=== PATIENT | female | born 1960 | race Caucasian/White ===

== ENCOUNTER 2020-03-09 15:57 | Outpatient (CLI) | payer OTHER, SELFPAY ==
--- NOTE | ~2020-03-09 | XR_ITS ---
EXAMINATION: XR knee RT min 4V DATE: 03/09/2020 16:33 INDICATION: Right knee pain. TECHNIQUE: 4 views of right knee were obtained. COMPARISON: None. FINDINGS: Bone alignment is normal. No fracture. There is mild tricompartmental osteoarthritis. There is a moderate-sized knee joint effusion. IMPRESSION: 1. Mild right knee osteoarthritis. 2. Moderate-sized right knee joint effusion. Reviewed, dictated and finalized at location A.
--- NOTE | ~2020-03-09 | XR_ITS ---
EXAMINATION: XR knee LT min 4V DATE: 03/09/2020 16:33 INDICATION: Left knee pain. TECHNIQUE: 4 views of left knee were obtained. COMPARISON: None. FINDINGS: Bone alignment is normal. No fracture. There is mild tricompartmental osteoarthritis. There is a small knee joint effusion. IMPRESSION: 1. Mild left knee osteoarthritis. 2. Small left knee joint effusion. Reviewed, dictated and finalized at location A.
== END 2020-03-09 15:58 | disposition home or self-care (01) ==
PROVIDERS: PCP Family Medicine; Visit Provider Physician Assistant
DX: M17.0 Bilateral primary osteoarthritis of knee (principal); M25.461 Effusion, right knee; M25.462 Effusion, left knee
CPT/HCPCS: 73564

== ENCOUNTER 2020-09-13 07:25 | Outpatient (CLI) | payer OTHER, SELFPAY ==
--- NOTE | ~2020-09-13 | MM_ITS ---
EXAMINATION: MM screening katie BI w alycia HISTORY: Screening mammogram, family history of breast cancer in her mother. TECHNIQUE: Craniocaudal and mediolateral oblique 3-D tomosynthesis images were obtained and synthetic 2-D images were generated. CAD analysis was submitted and interpreted. COMPARISON: 02/18/2019, 02/12/2019, 02/01/2018, 01/15/2017 BREAST PARENCHYMAL COMPOSITION: There are scattered areas of fibroglandular density. FINDINGS: There is no evidence of suspicious mass, calcification, or architectural distortion to sugg est malignancy in either breast. There has been no suspicious interval change. IMPRESSION: 1. No mammographic evidence of malignancy. 2. Recommend routine screening mammography in one year. BI-RADS Category 1: Negative Reviewed, dictated and finalized at location A.
== END 2020-09-13 07:26 | disposition home or self-care (01) ==
LOC: ANHIMG 07:30
PROVIDERS: PCP Family Medicine; Visit Provider Family Medicine
DX: Z12.31 Encounter for screening mammogram for malignant neoplasm of breast (principal)
CPT/HCPCS: 77063; 77067

== ENCOUNTER → 2020-11-09 07:26 | Outpatient (CLI) | payer OTHER, SELFPAY ==
[2020-11-09 19:22] LABS: SARS-CoV-2 RNA PCR Negative
== END ==
PROVIDERS: PCP Family Medicine; Visit Provider Internal Medicine Gastroenterology
DX: Z01.812 Encounter for preprocedural laboratory examination (principal); Z20.822 Contact with and (suspected) exposure to COVID-19
CPT/HCPCS: C9803; U0003; U0005

== ENCOUNTER 2020-11-12 00:08 | Day surgery (SDC) | payer OTHER, SELFPAY ==
[2020-11-01 09:43] VITALS: BMI 29.2
[2020-11-12 06:23] VITALS: BMI 28.3
[2020-11-12 06:26] VITALS: BP 136/86; PULSE 56; RESP 20; TEMP 36.1; O2SAT 100
[2020-11-12] MEDS: LACTATED RINGERS 1,000 ML 150 ML IV CONT (06:48)
--- NOTE | 2020-11-12 06:52 | P.PNAN_ITS ---
Anes - Initial Pre Proc Eval Procedure: Operation Date: 11/12/20 07:30 Proposed Procedures p Esophagogastroduodenoscopy - Andrew Barrett MD Date/Time: 11/12/20 06:52 Surgeon: Andrew Barrett MD Pre Op Diagnosis: GERD Patient Data Age: 60 Gender: F Height: 5 ft 6 in Weight: 79.5 kg Last Vital Signs Temp 36.1 C L 11/12/20 06:26 Pulse 56 L 11/12/20 06:26 Resp 20 11/12/20 06:26 BP 136/86 11/12/20 06:26 Pulse Ox 100 11/12/20 06:26 Allergies Allergy/AdvReac Type Severity Reaction Status Date / Time Penicillins Allergy Unknown allergic Verified 11/12/20 06:22 Sulfa (Sulfonamide Allergy Unknown VAGINAL Verified 11/12/20 06:22 Antibiotics) IRRITATION vilazodone [Viibryd] AdvReac Unknown Nausea Verified 11/12/20 06:22 Home Medications Medication Instructions Recorded Confirmed Type Flonase Allergy Relief 1 spray EACH NARE DAILY 06/11/19 11/01/20 History aspirin 81 mg tablet,delayed 81 mg PO DAILY 03/30/20 11/12/20 History release niacin 500 mg tablet 500 mg PO DAILY 03/30/20 11/12/20 History esomeprazole magnesium 40 mg 40 mg PO DAILY #90 cap 06/07/20 11/12/20 Rx capsule,delayed release magnesium chloride 71.5 mg 71.5 mg PO BID 08/22/20 11/12/20 History (magnesium chloride) tablet,delayed release Patient hx anesthesia problems: none Family hx anesthesia problems: none [facility] Social History Social History Alcohol intake: current Alcohol use details: rare use/ on special occasions only Substance use: never Substance use type: does not use Living arrangements: with family Gender identity (if verbalized by the patient): Female Sexual Orientation (if Verbalized by the Patient): Straight or Heterosexual Spiritual care concerns: No Anes - Eval Final PreProcedure Day of Procedure 11/12/20 06:52 Patient weight: overweight Heart: regular rate and rhythm Lungs: clear to auscultation Airway: Mallampati scale class II Neurological: alert and oriented Last oral intake: >/= 8 hours ASA classification: II Emergent: no Anesthetic plan: proceed Anesthesia type and monitoring: general GIVS and standard monitoring Informed Consent: The patient's anesthetic plan and its attendant risks and benefits were discussed with the patient/family/POA. Questions were solicited and answers provided to the satisfaction of the patient/family/POA.
--- NOTE | 2020-11-12 07:04 | PM.HPGS ---
History of Present Illness History of Present Illness Consent: Risks, benefits, and alternatives have been discussed and questions answered. Patient agrees to proceed with procedure. Chief complaint: GERD Narrative: Tory Holley is a 60 year old female With chronic acid reflux. She is managed at the present time with Nexium. Recently an ENT examined her and saw erythema in the vocal cords and he suggested possibly adding a medication such as cimetidine to her regimen. She denies dysphagia. Her mother had Adan's esophagus Review of Systems Review of Systems: All systems reviewed & are unremarkable except as noted in HPI and below PMFSH Family History Family History (Updated 11/12/20 @ 07:05 by Andrew Barrett MD) Other Adan's esophagus Social History Social History Alcohol intake: current Alcohol use details: rare use/ on special occasions only Substance use: never Substance use type: does not use Living arrangements: with family Gender identity (if verbalized by the patient): Female Sexual Orientation (if Verbalized by the Patient): Straight or Heterosexual Spiritual care concerns: No Meds Home Medications and Allergies Home Medications Medication Instructions Recorded Confirmed Type Flonase Allergy Relief 1 spray EACH NARE DAILY 06/11/19 11/01/20 History aspirin 81 mg tablet,delayed 81 mg PO DAILY 03/30/20 11/12/20 History release niacin 500 mg tablet 500 mg PO DAILY 03/30/20 11/12/20 History esomeprazole magnesium 40 mg 40 mg PO DAILY #90 cap 06/07/20 11/12/20 Rx capsule,delayed release magnesium chloride 71.5 mg 71.5 mg PO BID 08/22/20 11/12/20 History (magnesium chloride) tablet,delayed release Allergies Allergy/AdvReac Type Severity Reaction Status Date / Time Penicillins Allergy Unknown allergic Verified 11/12/20 06:22 Sulfa (Sulfonamide Allergy Unknown VAGINAL Verified 11/12/20 06:22 Antibiotics) IRRITATION vilazodone [Viibryd] AdvReac Unknown Nausea Verified 11/12/20 06:22 Vital Signs Vital Signs - 24 hr 11/12/20 06:26 Temperature 36.1 C L Pulse Rate 56 L Respiratory Rate 20 Blood Pressure 136/86 Pulse Oximetry 100 Exam Const: General: alert Orientation/consciousness: patient oriented x3 Resp: Auscultation: clear to auscultation bilaterally Cardio: Rhythm: regular rhythm GI: GI Palp: Yes Soft to palpation and No Tenderness to palpation present (GI) Neuro: General: patient oriented x3 Assessment and Plan Assessment and plan (1) Reflux esophagitis: Code(s): K21.0 - Gastro-esophageal reflux disease with esophagitis Status: Acute Assessment and Plan: EGD with possible biopsy or dilatation or cautery.
[2020-11-12 07:30] VITALS: BP 90/61; PULSE 68; RESP 22; O2SAT 97
[2020-11-12 07:40] VITALS: BP 90/55; PULSE 67; RESP 19; O2SAT 98
[2020-11-12 07:50] VITALS: BP 85/50; PULSE 69; RESP 17; O2SAT 100
== END 2020-11-12 08:17 | disposition home or self-care (01) ==
PROVIDERS: PCP Family Medicine; Visit Provider Internal Medicine Gastroenterology
PROC: 0DJ08ZZ Inspection of Upper Intestinal Tract, Via Natural or Artificial Opening Endoscopic (ICD-10-PCS; CPT 43235; principal; 2020-11-12 07:30)
DX: K21.00 Gastro-esophageal reflux disease with esophagitis, without bleeding (principal); K31.7 Polyp of stomach and duodenum
CPT/HCPCS: 43239; 88305; J2001; J2704; J7120